=== PATIENT | male | born 1965 | race Two or more races ===

== ENCOUNTER 2022-11-23 15:55 | Emergency (ER) | payer OTHER ==
[~2022-11-23] VITALS: Ht 167.6 cm; Wt 79.2 kg
[2022-11-23 16:20] VITALS: BP 140/90
[2022-11-23] MEDS ORDERED: KETOROLAC TROMETH 60MG/2ML VIAL IM ONE (16:30)
[2022-11-23] MEDS ORDERED: CYCL-839 PO (17:12)
[2022-11-23] MEDS ORDERED: IBUP800T27 PO (17:12)
== END 2022-11-23 17:23 | disposition home or self-care (01) ==
LOC: ER 15:58
DX: S16.1XXA Strain of muscle, fascia and tendon at neck level, initial encounter (principal); M50.30 Other cervical disc degeneration, unspecified cervical region; M54.12 Radiculopathy, cervical region; E11.9 Type 2 diabetes mellitus without complications; E78.5 Hyperlipidemia, unspecified; X58.XXXA Exposure to other specified factors, initial encounter; Y93.89 Activity, other specified; Y92.89 Other specified places as the place of occurrence of the external cause; Y99.8 Other external cause status
CPT/HCPCS: 72040; 96372; 99283; J1885